=== PATIENT | female | born 1945 | race Caucasian/White ===

== ENCOUNTER 2022-04-12 21:02 | Emergency (ER) | payer MEDICARE ==
[2022-04-12 21:58] LABS: HEMOGLOBIN 13.7 gm/dl (12.3-15.3); RED BLOOD COUNT 4.51 M/UL (4.00-5.10); WHITE BLOOD COUNT 5.9 K/UL (4.5-11.0)
[2022-04-12 22:20] LABS: BUN/CREATININE RATIO 25 (0-10)
== END 2022-04-13 03:40 | disposition home or self-care (01) ==
LOC: ER1 21:02
PROVIDERS: Physician Assistant Medical
DX: K62.5 Hemorrhage of anus and rectum (principal); I11.9 Hypertensive heart disease without heart failure; E11.9 Type 2 diabetes mellitus without complications; E78.5 Hyperlipidemia, unspecified; Z95.1 Presence of aortocoronary bypass graft; Z88.5 Allergy status to narcotic agent; Z79.82 Long term (current) use of aspirin
CPT/HCPCS: 80053; 81001; 82272; 82962; 83605; 85025; 85610; 99284; Q9967